=== PATIENT | male | born 1985 | race Caucasian/White ===

== ENCOUNTER 2020-03-25 09:07 | Emergency (ER) | payer MEDICAID ==
[2020-03-25] MEDS ORDERED: Ondansetron 4 MG Tab.DIS PO ONE ×2 (09:30→09:36)
--- NOTE | 2020-03-25 09:33 | EDM.PDOC ---
ED HPI GENERAL MEDICAL PROBLEM - General Chief Complaint: ENT Problem Stated Complaint: INFECTED TOOTH Time Seen by Provider: 03/25/20 09:23 Source of Information: Reports: Patient History Limitations: Reports: No Limitations - History of Present Illness INITIAL COMMENTS - FREE TEXT/NARRATIVE: History of present illness: The patient has chronic sinus problems and chronic dental problems. He has been on antibiotics but not for the last month. For 5 days he has recurrence of his feelings of swelling in the face with pain about the face teeth and neck. He feels like he is not getting enough to eat and drink. He is somewhat nauseated and dehydrated. Patient has intermittent 1 second brief chest pains occasionally and some stomachache as well. [] Review of systems: As per history of present illness and below otherwise all systems reviewed and negative. Past medical history: As per history of present illness and as reviewed below otherwise noncontributory. Surgical history: As per history of present illness and as reviewed below otherwise noncontributory. Social history: No reported history of drug or alcohol abuse. Family history: As per history of present illness and as reviewed below otherwise noncontributory. Physical exam: HEENT: There is swelling about the lateral zygomatic area down into the lymph glands in the neck. The patient has no trismus. His teeth are in poor condition with periodontal disease. The patient's neck is supple and Brudzinski sign is negative. Atraumatic, normocephalic, pupils reactive, negative for conjunctival pallor or scleral icterus, mucous membranes moist, throat clear, neck supple, nontender, trachea midline. The patient has tenderness in the frontal and maxillary sinuses. Lungs: Clear to auscultation, breath sounds equal bilaterally, chest nontender. Heart: S1S2, regular, negative for clicks, rubs, or JVD. Abdomen: Soft, nondistended, nontender. Negative for masses or hepatosplenomegaly. Negative for costovertebral tenderness. Pelvis: Stable nontender. Genitourinary: Deferred. Rectal: Deferred. Extremities: Atraumatic, negative for cords or calf pain. Neurovascular unremarkable. Neuro: Awake, alert, oriented. Cranial nerves II through XII unremarkable. Cerebellum unremarkable. Motor and sensory unremarkable throughout. Exam nonfocal. Diagnostics: [] Therapeutics: [] Impression: [] Plan: [] Definitive disposition and diagnosis as appropriate pending reevaluation and review of above. Onset: Gradual, Other Duration: Day(s): (5) Location: Reports: Face, Neck dental Pain Score (Numeric/FACES): 8 - Related Data Allergies Allergy/AdvReac Type Severity Reaction Status Date / Time No Known Allergies Allergy Verified 03/25/20 09:22 Home Meds: Home Meds Pantoprazole Sodium [Protonix] 40 mg PO BID 04/19/19 [History] LORazepam [Ativan] 1 mg PO TID PRN #8 tablet 11/03/19 [Rx] Amoxicillin/Potassium Clav [Augmentin 875-125 Tablet] 1 each PO BID #20 tablet 03/25/20 [Rx] Hydrocodone/Acetaminophen [Hydrocodone-Acetamin 5-325 mg] 1 each PO QID 03/25/20 [History] Past Medical History HEENT History: Reports: Impaired Vision Other HEENT History: wears galsses, has partial, sinusitis Cardiovascular History: Reports: Hypertension Other Respiratory History: allergies Gastrointestinal History: Reports: GERD, Hiatal Hernia Musculoskeletal History: Reports: Back Pain, Chronic, Other (See Below) Other Musculoskeletal History: right knee issues and wears a brace Neurological History: Reports: Migraines Other Neuro History: traumatic brain injury Psychiatric History: Reports: Anxiety, Depression Hematologic History: Reports: Anemia - Infectious Disease History Infectious Disease History: Reports: None - Past Surgical History HEENT Surgical History: Reports: Oral Surgery Musculoskeletal Surgical History: Reports: Other (See Below) Other Musculoskeletal Surgeries/Procedures:: right knee issues and knee surgeries Social & Family History - Family History Family Medical History: Noncontributory - Tobacco Use Smoking Status *Q: Former Smoker Used Tobacco, but Quit: Yes Month/Year Tobacco Last Used: 2017 - Caffeine Use Caffeine Use: Reports: None Other Caffeine Use: occasional 5 hr energy shot - Recreational Drug Use Recreational Drug Use: No ED ROS ENT - Review of Systems Review Of Systems: Comprehensive ROS is negative, except as noted in HPI. ED EXAM, ENT - Physical Exam Exam: See Below Text/Narrative:: See HPI Course - Vital Signs Last Recorded V/S: Last Vital Signs Temp 96.8 F L 03/25/20 09:25 Pulse 89 03/25/20 09:25 Resp 18 03/25/20 09:25 BP 149/90 H 03/25/20 09:25 Pulse Ox 98 03/25/20 09:25 - Orders/Labs/Meds Labs: Laboratory Tests 03/25/20 03/25/20 Range/Units 09:41 09:41 WBC 8.43 (4.0-11.0) K/uL RBC 4.82 (4.50-5.90) M/uL Hgb 14.2 (13.0-17.0) g/dL Hct 43.2 (38.0-50.0) % MCV 89.6 (80.0-98.0) fL MCH 29.5 (27.0-32.0) pg MCHC 32.9 (31.0-37.0) g/dL RDW Std Deviation 46.4 (28.0-62.0) fl RDW Coeff of Dominic 14 (11.0-15.0) % Plt Count 223 (150-400) K/uL MPV 9.10 (7.40-12.00) fL Neut % (Auto) 48.5 (48.0-80.0) % Lymph % (Auto) 39.5 (16.0-40.0) % [place] % (Auto) 7.9 (0.0-15.0) % Eos % (Auto) 3.7 (0.0-7.0) % Baso % (Auto) 0.4 (0.0-1.5) % Neut # (Auto) 4.1 (1.4-5.7) K/uL Lymph # (Auto) 3.3 H (0.6-2.4) K/uL [place] # (Auto) 0.7 (0.0-0.8) K/uL Eos # (Auto) 0.3 (0.0-0.7) K/uL Baso # (Auto) 0.0 (0.0-0.1) K/uL Nucleated RBC % 0.0 /100WBC Nucleated RBCs # 0 K/uL Sodium 134 L (136-148) mmol/L Potassium 3.9 (3.5-5.1) mmol/L Chloride 99 (98-107) mmol/L Carbon Dioxide 27.8 (21.0-32.0) mmol/L BUN 9 (7.0-18.0) mg/dL Creatinine 1.0 (0.8-1.3) mg/dL Est Cr Clr Drug Dosing 123.23 mL/min Estimated GFR (MDRD) > 60.0 ml/min Glucose 93 (74-106) mg/dL Calcium 8.6 (8.5-10.1) mg/dL Total Bilirubin 0.4 (0.2-1.0) mg/dL AST 15 (15-37) IU/L ALT 28 (14-63) IU/L Alkaline Phosphatase 117 H (46-116) U/L Total Protein 7.5 (6.4-8.2) g/dL Albumin 3.8 (3.4-5.0) g/dL Globulin 3.7 (2.6-4.0) g/dL Albumin/Globulin Ratio 1.0 (0.9-1.6) Meds: Medications Discontinued Medications Generic Name Dose Route Start Last Admin Trade Name Freq PRN Reason Stop Dose Admin Naproxen 500 mg 03/25/20 10:05 Naprosyn PO 03/25/20 10:06 ONETIME ONE Naproxen 500 mg 03/25/20 10:08 03/25/20 10:12 Naprosyn PO 03/25/20 10:09 500 mg ONETIME ONE Administration Ondansetron HCl 4 mg 03/25/20 09:30 03/25/20 09:37 Zofran Odt PO 03/25/20 09:31 4 mg ONETIME ONE Administration Ondansetron HCl 4 mg 03/25/20 09:36 Zofran Odt PO 03/25/20 09:37 ONETIME ONE Departure - Departure Time of Disposition: 10:38 Disposition: Home, Self-Care 01 Condition: Good Clinical Impression: Sinusitis chronic, frontal, Sinusitis accessory - Discharge Information *PRESCRIPTION DRUG MONITORING PROGRAM REVIEWED*: Not Applicable *COPY OF PRESCRIPTION DRUG MONITORING REPORT IN PATIENT TAMARA: Not Applicable Prescriptions: Amoxicillin/Potassium Clav [Augmentin 875-125 Tablet] 1 each PO BID #20 tablet Instructions: Sinusitis, Adult, [id number] Referrals: PCP,Not In Area [Primary Care Provider] - Forms: ED Department Discharge Additional Instructions: The following information is given to patients seen in the emergency department who are being discharged to home. This information is to outline your options for follow-up care. We provide all patients seen in our emergency department with a follow-up referral. The need for follow-up, as well as the timing and circumstances, are variable depending upon the specifics of your emergency department visit. If you don't have a primary care physician on staff, we will provide you with a referral. We always advise you to contact your personal physician following an emergency department visit to inform them of the circumstance of the visit and for follow-up with them and/or the need for any referrals to a consulting specialist. The emergency department will also refer you to a specialist when appropriate. This referral assures that you have the opportunity for follow-up care with a specialist. All of these measure are taken in an effort to provide you with optimal care, which includes your follow-up. Under all circumstances we always encourage you to contact your private physician who remains a resource for coordinating your care. When calling for follow-up care, please make the office aware that this follow-up is from your recent emergency room visit. If for any reason you are refused follow-up, please contact the [facility] Emergency Department at and asked to speak to the emergency department charge nurse. [facility] [address] [place] [address] [place] [address] Use [id number] anti-inflammatory medicine such as naproxen or ibuprofen for pain. Warm compresses across the face and sinuses may be helpful too Sepsis Event Note (ED) - Evaluation Sepsis Screening Result: No Definite Risk - Focused Exam Vital Signs: Vital Signs Temp Pulse Resp BP Pulse Ox 03/25/20 09:25 96.8 F L 89 18 149/90 H 98
[2020-03-25] MEDS ORDERED: Naproxen 500 MG Tab PO ONE ×2 (10:05→10:08)
[2020-03-25 10:19] LABS: BLOOD UREA NITROGEN,BUN 9 mg/dL (7.0-18.0); CARBON DIOXIDE,CO2 27.8 mmol/L (21.0-32.0); CHLORIDE,CL 99 mmol/L (98-107); GLUCOSE RANDOM 93 mg/dL (74-106); POTASSIUM,K 3.9 mmol/L (3.5-5.1); SODIUM,NA 134 mmol/L (136-148)
[2020-03-25 11:14] VITALS: BP 138/89; PULSE 83
== END 2020-03-25 10:49 | disposition home or self-care (01) ==
LOC: MW.ED 09:07
DX: J32.1 Chronic frontal sinusitis (principal); I10 Essential (primary) hypertension; K21.9 Gastro-esophageal reflux disease without esophagitis; F41.9 Anxiety disorder, unspecified; F32.9 Major depressive disorder, single episode, unspecified; Z87.891 Personal history of nicotine dependence; Z79.899 Other long term (current) drug therapy
CPT/HCPCS: 36415; 80053; 85025; 99283; A9270; 99282